=== PATIENT | male | born 1970 | race Two or more races ===

== ENCOUNTER → 2020-03-09 | Emergency (ER) | payer SELFPAY ==
[~2020-03-09] VITALS: Ht 170.2 cm; Wt 108.9 kg
[~2020-03-09] MED LIST: ACETAMINOPHEN 500 MG TAB PO ONE
[2020-03-09 20:13] VITALS: BP 163/99
== END | disposition home or self-care (01) ==
LOC: ER 19:56
DX: S52.502A Unspecified fracture of the lower end of left radius, initial encounter for closed fracture (principal); E11.9 Type 2 diabetes mellitus without complications; I10 Essential (primary) hypertension; F17.210 Nicotine dependence, cigarettes, uncomplicated; Z88.0 Allergy status to penicillin; Z88.6 Allergy status to analgesic agent; W11.XXXA Fall on and from ladder, initial encounter; Y93.89 Activity, other specified; Y92.89 Other specified places as the place of occurrence of the external cause; Y99.8 Other external cause status
CPT/HCPCS: 29105; 29125; 70450; 72125; 73090; 73110; 73130